=== PATIENT | male | born 1965 | race Caucasian/White ===

== ENCOUNTER 2017-05-03 08:55 | Day surgery (SDC) | payer BC, OTHER ==
[~2017-05-03] VITALS: Ht 172.7 cm; Wt 104.3 kg
[~2017-05-03 08:55] MED LIST: AMLODIPINE5 MG PO; B-12500 MC2 PO; BL ASPIRIN325 MG PO; BYDUREON2 MG SC; DIPHEN/ATROP2.5 M1 PO; DULERA1 AE1 IN; FLOVENT DI50 MCG/BLI NAB; KEPPRA750 M2 PO; LEVOTHYROXIN50 MC1 PO; LIPITOR40 M1 PO; MUCINEX DM1 TA1 PO; MUPIROCIN2 % EX; OXY1; PANTOPRAZOLE SO40 M1 PO; PLAVIX75 MG PO; POT CHLORIDE20 ME3 PO; PROAIR HFA IN; SINGULAIR10 MG PO; SPIRIVA HANDIH18 MCG; TAMSULOSIN0.4 MG PO; TENORMIN PO; VESICARE5 M1 PO; ZETIA10 MG PO
[2017-05-03 12:29] VITALS: BP 117/69
== END 2017-05-03 12:35 | disposition home or self-care (01) | DRG 392 ==
LOC: ENDO 08:55 → ORM 19:00
PROVIDERS: ATTEND Internal Medicine Gastroenterology
PROC: 0DBP8ZX Excision of Rectum, Via Natural or Artificial Opening Endoscopic, Diagnostic (ICD-10-PCS; principal; 2017-05-03)
PROC: 0DBE8ZX Excision of Large Intestine, Via Natural or Artificial Opening Endoscopic, Diagnostic (ICD-10-PCS; 2017-05-03)
DX: R19.7 Diarrhea, unspecified (principal); Q43.8 Other specified congenital malformations of intestine; R19.5 Other fecal abnormalities; K64.8 Other hemorrhoids; K64.4 Residual hemorrhoidal skin tags; K62.1 Rectal polyp; E11.9 Type 2 diabetes mellitus without complications; J44.9 Chronic obstructive pulmonary disease, unspecified; Z86.73 Personal history of transient ischemic attack (TIA), and cerebral infarction without residual deficits; E78.00 Pure hypercholesterolemia, unspecified; Z80.0 Family history of malignant neoplasm of digestive organs